=== PATIENT | female | born 1995 | race Caucasian/White ===

== ENCOUNTER 2016-08-10 13:00 | Outpatient (CLI) | payer BC, OTHER ==
[2016-08-10 15:02] LABS: ALBUMIN 4.2 g/dL (3.4-5.0); BILIRUBIN,TOTAL 0.2 mg/dL (0.2-1.0); CALCIUM 9.3 mg/dL (8.5-10.1); CREATININE 0.8 mg/dL (0.6-1.3); TOTAL PROTEIN, SERUM 8.3 g/dL (6.4-8.2)
[2016-08-10 15:04] LABS: HEMATOCRIT 39.9 % (37.0-47.0); HEMOGLOBIN 12.9 g/dL (12.0-16.0); MEAN CORPUSCULAR HGB CONC 32 g/dL (32.0-37.0); MEAN CORPUSCULAR VOLUME 89.9 fL (81.0-99.0); PLATELET COUNT (AUTO) 352 K/uL (150-450); RED BLOOD CELL COUNT(AUTO) 4.44 MIL/uL (4.20-5.40); RED CELL DISTRIBUTION WIDTH 11.8 % (11.5-14.5)
[2016-08-10 15:12] LABS: THYROID STIMULATING HORMONE 0.986 mIU/mL (0.358-3.740)
[2016-08-10 15:37] LABS: *BILIRUBIN,URIN NEGATIVE (NEGATIVE); *BLOOD, URINE NEGATIVE (NEGATIVE); *CLARITY,URINE SLIGHTLY CLOUDY (CLEAR); *COLOR,URINE YELLOW (YELLOW); *KETONES,URINE NEGATIVE (NEGATIVE); *PROTEIN,URINE NEGATIVE (NEGATIVE); *UROBILINOGEN,URINE 0.2 E.U./dl (NORMAL); LEUKOCYTE ESTERASE ,URINE 1+ (NEGATIVE); NITRITE, URINE NEGATIVE (NEGATIVE); UGLUCOSE NEGATIVE (NEGATIVE)
[2016-08-10 15:43] LABS: EOSINOPHILS % (MANUAL) 4 % (0-8); LYMPHOCYTES % (MANUAL) 23 % (20-40); MONOCYTES % (MANUAL) 3 % (2-10); NEUTROPHILS % (MANUAL) 70 % (42-75)
[2016-08-10 16:10] LABS: MUCUS,URINE FEW /LPF (0-FEW)
[2016-08-10 16:11] LABS: SQUAMOUS EPITHELIAL CELL,UR FEW /HPF (NONE SEEN)
== END 2016-08-10 23:59 | disposition home or self-care (01) ==
LOC: LAB 13:00
DX: K21.9 Gastro-esophageal reflux disease without esophagitis (principal); R53.81 Other malaise; R53.83 Other fatigue
CPT/HCPCS: 36415; 84443; 84481; 85025; 87086

== ENCOUNTER 2016-09-10 18:57 | Emergency (ER) | payer BC, OTHER ==
[~2016-09-10] VITALS: Ht 157.5 cm; Wt 63.5 kg
[2016-09-10 19:56] LABS: *BILIRUBIN,URIN NEGATIVE (NEGATIVE); *BLOOD, URINE 3+ (NEGATIVE); *COLOR,URINE YELLOW (YELLOW); *KETONES,URINE 2+ (NEGATIVE); *PROTEIN,URINE 1+ (NEGATIVE); *UROBILINOGEN,URINE 0.2 E.U./dl (NORMAL); LEUKOCYTE ESTERASE ,URINE NEGATIVE (NEGATIVE); NITRITE, URINE NEGATIVE (NEGATIVE); PH,URINE 5.5 (5.0-8.0); UGLUCOSE NEGATIVE (NEGATIVE)
[2016-09-10 20:00] LABS: *URINE HCG, QUAL NEGATIVE (NEGATIVE)
[2016-09-10 20:06] LABS: *CLARITY,URINE CLOUDY (CLEAR)
[2016-09-10 20:07] LABS: RBC,URINE 80-100 /HPF (0-3)
[2016-09-10 20:08] LABS: BACTERIA,URINE FEW /HPF (NONE SEEN); MUCUS,URINE MANY /LPF (0-FEW); SQUAMOUS EPITHELIAL CELL,UR MODERATE /HPF (NONE SEEN)
[2016-09-10] MEDS: IBUPROFEN 800 MG TABLET PO ONE (23:50)
[2016-09-10] MEDS ORDERED: IBUPROFEN 800 MG TABLET ONE (23:59)
--- NOTE | 2016-09-11 03:17 | NUR ---
Patient discharged to home in stable conditon. Written and verbal after care instructions given. Patient verbalizes understanding of instructions. Ambulated from ER with stable gait. All belongings with patient.
[2016-09-11 03:18] VITALS: BP 128/69
== END 2016-09-11 03:18 | disposition home or self-care (01) ==
LOC: ER 18:58
DX: R31.9 Hematuria, unspecified (principal); N94.6 Dysmenorrhea, unspecified; Z88.0 Allergy status to penicillin
CPT/HCPCS: 84703; A4663

== ENCOUNTER 2017-08-18 09:49 | Outpatient (CLI) | payer BC, OTHER | END 2017-08-18 23:59 | disposition home or self-care (01) | LOC: US 09:49 | DX: N83.209 Unspecified ovarian cyst, unspecified side (principal); N94.6 Dysmenorrhea, unspecified ==

== ENCOUNTER 2017-09-08 09:49 | Outpatient (CLI) | payer BC, OTHER ==
[2017-09-08 10:19] LABS: BASOPHILS # (AUTO) 0.1 K/uL (0.0-8.0); BASOPHILS % (AUTO) 0.7 % (0.0-2.0); EOSINOPHILS # (AUTO) 0.4 K/uL (0.0-0.7); EOSINOPHILS % (AUTO) 4.2 % (0.0-7.0); HEMATOCRIT 38.2 % (31.2-41.9); LYMPHOCYTES % (AUTO) 33.8 % (20.5-51.5); MEAN CORPUSCULAR HEMOGLOBIN 30.9 uug (24.7-32.8); MEAN CORPUSCULAR HGB CONC 34 g/dL (32.3-35.6); MEAN CORPUSCULAR VOLUME 90.6 fL (75.5-95.3); MONOCYTES # (AUTO) 0.6 K/uL (2.0-10.0); MONOCYTES % (AUTO) 6.4 % (0.0-11.0); NEUTROPHILS # (AUTO) 4.9 K/uL (1.8-8.9); NEUTROPHILS % (AUTO) 54.9 % (38.5-71.5); PLATELET COUNT (AUTO) 326 K/uL (179-408); RED BLOOD CELL COUNT(AUTO) 4.21 MIL/uL (3.63-4.92); WHITE BLOOD COUNT (AUTO) 8.9 K/uL (3.8-11.8)
[2017-09-08 10:29] LABS: BILIRUBIN,TOTAL 0.3 mg/dL (0.2-1.0); CREATININE 0.8 mg/dL (0.6-1.3); POTASSIUM 3.6 mmol/L (3.5-5.1); TOTAL PROTEIN, SERUM 8.5 g/dL (6.4-8.2)
[2017-09-08 11:04] LABS: THYROID STIMULATING HORMONE 2.086 mIU/mL (0.358-3.740)
[2017-09-09 09:54] LABS: *BILIRUBIN,URIN NEGATIVE (NEGATIVE); *BLOOD, URINE 1+ (NEGATIVE); *COLOR,URINE YELLOW (YELLOW); *KETONES,URINE NEGATIVE (NEGATIVE); *PROTEIN,URINE NEGATIVE (NEGATIVE); *UROBILINOGEN,URINE 0.2 E.U./dl (NORMAL); LEUKOCYTE ESTERASE ,URINE NEGATIVE (NEGATIVE); NITRITE, URINE NEGATIVE (NEGATIVE); UGLUCOSE NEGATIVE (NEGATIVE)
[2017-09-09 10:00] LABS: *CLARITY,URINE SLIGHTLY HAZY (CLEAR)
[2017-09-09 10:10] LABS: BACTERIA,URINE NONE SEEN /HPF (NONE SEEN); WBC,URINE 0-3 /HPF (0-3)
[2017-09-09 10:11] LABS: SQUAMOUS EPITHELIAL CELL,UR MODERATE /HPF (NONE SEEN)
== END 2017-09-08 23:59 | disposition home or self-care (01) ==
LOC: LAB 09:49
DX: K21.9 Gastro-esophageal reflux disease without esophagitis (principal); R53.83 Other fatigue; R53.81 Other malaise
CPT/HCPCS: 36415; 84443; 84481; 85025

== ENCOUNTER 2017-10-28 09:09 | Outpatient (CLI) | payer BC, OTHER | END 2017-10-28 23:59 | disposition home or self-care (01) | LOC: US 09:09 → RAD 23:59 | PROVIDERS: ATTEND Family Medicine | DX: N28.1 Cyst of kidney, acquired (principal) | CPT/HCPCS: 76700 ==

== ENCOUNTER 2017-11-04 10:32 | Outpatient (CLI) | payer BC, OTHER ==
[2017-11-04 11:13] LABS: BASOPHILS % (AUTO) 0.5 % (0.0-2.0); EOSINOPHILS # (AUTO) 0.3 K/uL (0.0-0.7); EOSINOPHILS % (AUTO) 3.9 % (0.0-7.0); HEMATOCRIT 36.2 % (31.2-41.9); HEMOGLOBIN 12.2 g/dL (10.9-14.3); LYMPHOCYTES # (AUTO) 2.5 K/uL (20.0-40.0); LYMPHOCYTES % (AUTO) 32.5 % (20.5-51.5); MEAN CORPUSCULAR HEMOGLOBIN 30.2 uug (24.7-32.8); MEAN CORPUSCULAR HGB CONC 34 g/dL (32.3-35.6); MEAN CORPUSCULAR VOLUME 89.3 fL (75.5-95.3); MONOCYTES # (AUTO) 0.6 K/uL (2.0-10.0); MONOCYTES % (AUTO) 7.4 % (0.0-11.0); NEUTROPHILS # (AUTO) 4.2 K/uL (1.8-8.9); NEUTROPHILS % (AUTO) 55.7 % (38.5-71.5); PLATELET COUNT (AUTO) 317 K/uL (179-408); RED BLOOD CELL COUNT(AUTO) 4.06 MIL/uL (3.63-4.92); WHITE BLOOD COUNT (AUTO) 7.6 K/uL (3.8-11.8)
[2017-11-04 11:16] LABS: BILIRUBIN,TOTAL 0.4 mg/dL (0.2-1.0); CREATININE 0.8 mg/dL (0.6-1.3); MAGNESIUM 2.1 mg/dL (1.8-2.4); PHOSPHOROUS 3.7 mg/dL (2.5-4.9); POTASSIUM 4.3 mmol/L (3.5-5.1); TOTAL PROTEIN, SERUM 7.9 g/dL (6.4-8.2)
[2017-11-04 11:38] LABS: THYROID STIMULATING HORMONE 1.741 mIU/mL (0.358-3.740)
[2017-11-05 09:39] LABS: *BILIRUBIN,URIN NEGATIVE (NEGATIVE); *BLOOD, URINE NEGATIVE (NEGATIVE); *CLARITY,URINE CLOUDY (CLEAR); *COLOR,URINE YELLOW (YELLOW); *KETONES,URINE TRACE (NEGATIVE); *PROTEIN,URINE 1+ (NEGATIVE); *UROBILINOGEN,URINE 0.2 E.U./dl (NORMAL); LEUKOCYTE ESTERASE ,URINE NEGATIVE (NEGATIVE); NITRITE, URINE NEGATIVE (NEGATIVE); UGLUCOSE NEGATIVE (NEGATIVE)
[2017-11-05 09:55] LABS: RBC,URINE 0-3 /HPF (0-3)
[2017-11-05 09:56] LABS: BACTERIA,URINE NONE SEEN /HPF (NONE SEEN); SQUAMOUS EPITHELIAL CELL,UR FEW /HPF (NONE SEEN); WBC,URINE 0-3 /HPF (0-3)
[2017-11-05 09:58] LABS: URINE AMORPHOUS URATE MODERATE /HPF
== END 2017-11-04 23:59 | disposition home or self-care (01) ==
LOC: LAB 10:32
PROVIDERS: ATTEND Internal Medicine
DX: R31.9 Hematuria, unspecified (principal); N94.6 Dysmenorrhea, unspecified
CPT/HCPCS: 36415; 82306; 83735; 84100; 84443; 85025; 87086

== ENCOUNTER 2018-05-15 17:38 | Emergency (ER) | payer BC, OTHER ==
[~2018-05-15] VITALS: Ht 154.9 cm; Wt 62.6 kg
--- NOTE | 2018-05-15 19:00 | NUR ---
Patient discharged to home in stable conditon. Written and verbal after care instructions given. Patient verbalizes understanding of instructions.
== END 2018-05-15 19:02 | disposition home or self-care (01) ==
LOC: ER 17:39
DX: S90.32XA Contusion of left foot, initial encounter (principal); Z88.0 Allergy status to penicillin; Z88.1 Allergy status to other antibiotic agents; Z88.8 Allergy status to other drugs, medicaments and biological substances; W22.8XXA Striking against or struck by other objects, initial encounter; Y93.89 Activity, other specified; Y92.89 Other specified places as the place of occurrence of the external cause; Y99.8 Other external cause status
CPT/HCPCS: 73630; A4663